=== PATIENT | male | born 1985 | race Caucasian/White ===

== ENCOUNTER 2019-08-12 14:30 | Emergency (ER) | payer BC, SELFPAY ==
[2019-08-12 14:40] VITALS: BP 152/91; PULSE 108; RESP 16; TEMP 36.4; O2SAT 99
--- NOTE | 2019-08-12 15:22 | ED.GENADULT ---
HPI - General Adult General Chief complaint: Upper Respiratory Infection Stated complaint: sinus sore throat Time Seen by Provider: 08/12/19 15:23 Source: patient Mode of arrival: ambulatory Limitations: no limitations History of Present Illness HPI narrative: 34-year-old male patient presents to the [facility] with complaints of on again off again cold symptoms for the past 2 weeks. Patient states he had a lot of sinus drainage, runny nose, congestion, slight sore throat with a cough last week but states he got better over the weekend and started up again this Saturday. Patient states he has been taking NyQuil and DayQuil for his symptoms. Patient denies any fevers. Denies any chest pain, shortness of breath, abdominal pain, nausea, vomiting or diarrhea. Patient denies taking anything for sinuses on a daily basis. Patient states he did get a flu shot this year. Denies history of smoking. Related Data Home Medications Medication Instructions Recorded Confirmed No Home Medications 08/12/19 08/12/19 Allergies Allergy/AdvReac Type Severity Reaction Status Date / Time No Known Allergies Allergy Verified 08/12/19 15:03 Review of Systems Review of Systems: Narrative: CONSTITUTIONAL: Denies fever, chills, or sweats. EYES: Denies visual changes, redness, or discharge. ENT: Positive rhinorrhea, congestion, sore throat, denies otalgia. CARDIOVASCULAR: Denies chest pain, palpitations, or edema. RESPIRATORY: Positive cough denies dyspnea. GASTROINTESTINAL: Denies abdominal pain, nausea, vomiting, or diarrhea. GENITOURINARY: Denies dysuria or hematuria. SKIN: Denies rash or itching. MUSCULOSKELETAL: Denies back pain, joint pain, or myalgia. NEUROLOGIC: Denies headache, numbness, or weakness. PSYCHIATRIC: Denies anxiety or depression. PMFSH Comments At the time of my signature I agree with nursing past medical history, surgical, social, and family history. There is no relevant family history pertinent to the presenting complaint. Exam Narrative: Exam Narrative: GENERAL: Well-appearing, well-nourished, and in no acute distress. HEAD: Normocephalic, atraumatic. No tenderness noted to frontal maxillary sinuses on palpation. EYES: PERRLA and EOMI. ENT: Nares with erythema and edema noted bilaterally, no rhinorrhea or epistaxis. Mucous membranes moist. Postnasal drip noted. Posterior pharynx with no erythema, tonsillar margin, exudates or lesions present. Bilateral TMs are clear no erythema or foreign bodies in the canal. NECK: Supple. No lymphadenopathy CHEST: Clear to auscultation. No respiratory distress. HEART: Regular rate and rhythm. No murmur heard. Normal peripheral pulses. ABDOMEN: Soft, nontender, nondistended, normal active bowel sounds. EXTREMITIES: Normal range of motion. No edema. SKIN: Warm, dry, no rash. NEURO: No focal deficits. Alert and oriented x3. Course Vital Signs Vital signs: Vital Signs Temperature 36.4 C L 08/12/19 14:40 Pulse Rate 108 H 08/12/19 14:40 Respiratory Rate 16 08/12/19 14:40 Blood Pressure 152/91 H 08/12/19 14:40 Pulse Oximetry 99 08/12/19 14:40 Temperature 36.4 C L 08/12/19 14:40 Pulse Rate 108 H 08/12/19 14:40 Respiratory Rate 16 08/12/19 14:40 Blood Pressure 152/91 H 08/12/19 14:40 Pulse Oximetry 99 08/12/19 14:40 Vital signs reviewed. The patient has been informed that they may have pre-hypertension or Hypertension based on a BP reading in the department. I recommend that the patient call the primary care provider listed on their discharge instructions or a physician of their choice this week to arrange follow up for further evaluation of possible pre-hypertension or Hypertension Medical Decision Making Differential Diagnosis Differential Diagnosis: Differential diagnosis allergic rhinitis, chronic sinusitis, tonsillitis, acute sinusitis, infectious mononucleosis, seasonal influenza, pertussis, diphtheria, meningococcal disease, viral syndrome, vi
== END 2019-08-12 15:37 | disposition home or self-care (01) ==
PROVIDERS: Emergency Provider Nurse Practitioner Family
DX: J32.9 Chronic sinusitis, unspecified (principal)
CPT/HCPCS: 99213; G0463

== ENCOUNTER 2021-07-26 15:48 | Emergency (ER) | payer BC, SELFPAY ==
[2021-07-26 15:52] VITALS: BP 160/95; PULSE 81; RESP 14; TEMP 36.3; O2SAT 98
--- NOTE | 2021-07-26 15:54 | ED.EAR ---
HPI - Ear Problem General Chief complaint: Ear Stated complaint: right ear pain Time Seen by Provider: 07/26/21 15:50 Source: patient and RN notes reviewed History of Present Illness HPI Narrative: Patient is a 36-year-old male who presents the urgent care with complaints of right ear pain. Patient denies of any drainage cough, fever, nausea or vomiting. No other upper respiratory complaints. Patient states that it started Saturday evening and is worsened over the last 24 hours. Patient has been taking Tylenol. No other acute complaints. No acute distress noted. Patient read the plan of care. Some parts of this dictation were generated by voice recognition software and may contain typographical and/or grammatical inaccuracies. Related Data Home Medications Medication Instructions Recorded Confirmed No Home Medications 08/12/19 07/26/21 Allergies Allergy/AdvReac Type Severity Reaction Status Date / Time No Known Allergies Allergy Verified 07/26/21 15:59 Review of Systems Review of Systems: CONSTITUTIONAL: Denies fever, chills, or sweats. EYES: Denies visual changes, redness, or discharge. ENT: Denies rhinorrhea, congestion, sore throat. Reports of right otalgia CARDIOVASCULAR: Denies chest pain, palpitations, or edema. RESPIRATORY: Denies cough or dyspnea. GASTROINTESTINAL: Denies abdominal pain, nausea, vomiting, or diarrhea. GENITOURINARY: Denies dysuria or hematuria. SKIN: Denies rash or itching. MUSCULOSKELETAL: Denies back pain, joint pain, or myalgia. NEUROLOGIC: Denies headache, numbness, or weakness. All other systems reviewed are negative, except as documented in HPI. PMFSH Comments At the time of my signature, I reviewed and agree with the nursing past medical, surgical, social, and family history. There is no relevant family history pertinent to the patient complaint. Exam Narrative: GENERAL: This is a well-nourished, well-developed patient, in no apparent distress. HEAD: normocephalic, atraumatic. EYES: PERRL. Sclera clear/white. Vision is grossly intact. EARS: External ears normal, auditory canals clear and without drainage, mild fluid noted behind bilateral TMs. TMs normal without perforation. Hearing grossly intact. NOSE: External nose normal with no obvious nasal discharge, nares without redness, no rhinorrhea. THROAT: Mucous membranes moist NECK: Neck supple, mild nontender right submandibular lymphadenopathy, masses or thyromegaly. CARDIOVASCULAR: Regular rate and rhythm without murmurs, gallops, or rubs. RESPIRATORY: Clear to auscultation. Breath sounds equal bilaterally. No wheezes, rales, or rhonchi. SKIN: warm, intact with no suspicious lesions or rash, good texture and turgor. NEURO: awake, alert, and oriented to person, place and time. There were no obvious focal neurologic abnormalities. EXTREMITIES: No clubbing, cyanosis, or edema. Course Course Level of Care: Express Care Visit Vital Signs Vital signs: Vital Signs Temperature 97.3 F L 07/26/21 15:52 Pulse Rate 81 07/26/21 15:52 Respiratory Rate 14 07/26/21 15:52 Blood Pressure 160/95 H 07/26/21 15:52 Pulse Oximetry 98 07/26/21 15:52 Temperature 97.3 F L 07/26/21 15:52 Pulse Rate 81 07/26/21 15:52 Respiratory Rate 14 07/26/21 15:52 Blood Pressure 160/95 H 07/26/21 15:52 Pulse Oximetry 98 07/26/21 15:52 Reviewed-patient is informed that they may have pre-hypertension or hypertension based on a blood pressure reading in the department. I recommend the patient call the primary care provider listed on their discharge instructions or a physician of their choice this week to arrange follow-up for further evaluation of possible pre-hypertension or hypertension. Medical Decision Making MDM Narrative Medical decision making narrative: Advised the patient to use an oral antihistamine such as Benadryl in conjunction with Flonase nasal spray prior to bedtime. She will use ibuprofen as needed for pain and war
== END 2021-07-26 16:13 | disposition home or self-care (01) ==
PROVIDERS: Emergency Provider Nurse Practitioner Family
DX: H92.01 Otalgia, right ear (principal)
CPT/HCPCS: 99211; G0463

== ENCOUNTER 2023-04-15 12:32 | Emergency (ER) | payer BC, SELFPAY ==
[2023-04-15 12:38] VITALS: BP 156/100; PULSE 85; RESP 20; TEMP 36.4; O2SAT 97
--- NOTE | 2023-04-15 12:43 | ED.URI ---
HPI - URI/Sore Throat General Chief Complaint: Upper Respiratory Infection Stated Complaint: Sore Throat/Jaw Pain Source: patient and RN notes reviewed History of Present Illness HPI Narrative: 38 yo M Presents to urgent care with complaints of right lower jaw pain that has been progressively gotten worse over the last 3 days. Pt states his pain mostly when he is biting down on something. Pt states his right ear is starting to feel some pressure as well and is getting a tickle in his throat. Pt was seen by his dentist this morning and states his teeth looked good. Denies any fevers, chills, chest pain, SOB, vomiting, congestion, trouble swallowing or breathing, or facial swelling. Related Data Allergies Allergy/AdvReac Type Severity Reaction Status Date / Time No Known Allergies Allergy Verified 07/26/21 15:59 Review of Systems Review of Systems: CONSTITUTIONAL: Denies fever, chills, or sweats. EYES: Denies visual changes, redness, or discharge. ENT: Reports right ear pressure. reports right lower jaw pain when he eats. Reports a tickle in his throat. Denies any dental pain. CARDIOVASCULAR: Denies chest pain, palpitations, or edema. RESPIRATORY: Denies cough or dyspnea. GASTROINTESTINAL: Denies abdominal pain, nausea, vomiting, or diarrhea. GENITOURINARY: Denies dysuria or hematuria. SKIN: Denies rash or itching. MUSCULOSKELETAL: Denies back pain, joint pain, or myalgia. NEUROLOGIC: Denies headache, numbness, or weakness. Pertinent positives per HPI. PMFSH Comments At the time of my signature, I reviewed and agree with the nursing past medical, surgical, social, and family history. There is no relevant family history pertinent to the patient complaint. Exam Narrative: GENERAL: This is a well-nourished, well-developed patient, in no apparent distress. HEAD: normocephalic, atraumatic. EYES: Sclera clear/white. Vision is grossly intact. EARS: External ears normal, auditory canals clear and without drainage, TMs normal without perforation. Hearing grossly intact. NOSE: External nose normal with no obvious nasal discharge, nares without redness, no rhinorrhea. THROAT: Mucous membranes moist, posterior pharynx clear. MOUTH: full ROM with TMJ. No clicking or popping when opening. No dental pain or gum swelling. No facial swelling. No induration noted on mouth floor. No dysphonia, trismus, or drooling. No mandible tenderness. NECK: Neck supple, non-tender without lymphadenopathy, masses or thyromegaly. CARDIOVASCULAR: Regular rate and rhythm without murmurs, gallops, or rubs. RESPIRATORY: Clear to auscultation. Breath sounds equal bilaterally. No wheezes, rales, or rhonchi. SKIN: warm, intact with no suspicious lesions or rash, good texture and turgor. NEURO: awake, alert, and oriented to person, place and time. There were no obvious focal neurologic abnormalities. Course Course Level of Care: Express Care Visit Vital Signs Vital signs: Vital Signs Temperature 97.6 F 04/15/23 12:38 Pulse Rate 85 04/15/23 12:38 Respiratory Rate 20 04/15/23 12:38 Blood Pressure 156/100 H 04/15/23 12:38 Pulse Oximetry 97 04/15/23 12:38 Oxygen Delivery Room Air 04/15/23 12:38 Temperature 97.6 F 04/15/23 12:38 Pulse Rate 85 04/15/23 12:38 Respiratory Rate 20 04/15/23 12:38 Blood Pressure 156/100 H 04/15/23 12:38 Pulse Oximetry 97 04/15/23 12:38 Oxygen Delivery Room Air 04/15/23 12:38 reviewed MDM - URI/Sore Throat MDM Narrative Medical decision making narrative: You are receiving an antibiotic for a possible dental infection or abscess. Go to the ER with any new or worsening symptoms. No popping or pain in the TMJ area. strep was negative. No abscess appreciated. Abx was given due to possibility a dental abscess could be forming. Pt's pain was his distal, lower, right mandible. Differential Diagnosis Differential diagnosis: Likely viral infection, pharyngitis and other
== END 2023-04-15 13:08 | disposition home or self-care (01) ==
PROVIDERS: Emergency Provider Nurse Practitioner Family
DX: R68.84 Jaw pain (principal)
CPT/HCPCS: 87081; 87880; 99213; G0463